=== PATIENT | female | born 1980 | race Caucasian/White ===

== ENCOUNTER 2016-04-09 09:37 | Emergency (ER) | payer SELFPAY | END 2016-04-09 10:40 | disposition home or self-care (01) | LOC: ED 09:37 | DX: K08.89 Other specified disorders of teeth and supporting structures (principal); F17.210 Nicotine dependence, cigarettes, uncomplicated; Z91.040 Latex allergy status ==

== ENCOUNTER 2016-06-14 19:08 | Emergency (ER) | payer SELFPAY ==
[2016-06-14] MEDS ORDERED: IBUPROFEN 600 MG TABLET ONE (21:27)
[2016-06-14] MEDS ORDERED: ACETAMINOPHEN 325 MG TABLET ONE (21:27)
== END 2016-06-14 21:34 | disposition home or self-care (01) ==
LOC: ED 19:08
DX: B00.1 Herpesviral vesicular dermatitis (principal); L04.0 Acute lymphadenitis of face, head and neck
CPT/HCPCS: 99283 ×2; A9270 ×2